=== PATIENT | male | born 1980 | race American Indian/Alaskan Native ===

== ENCOUNTER 2016-08-10 18:13 | Emergency (ER) | payer SELFPAY ==
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
[2016-08-10 22:14] VITALS: BP 121/74
[2016-08-10] MEDS ORDERED: TORADOL IM ONE (22:15)
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
== END 2016-08-10 22:31 | disposition home or self-care (01) ==
LOC: ED 18:13
DX: S39.012A Strain of muscle, fascia and tendon of lower back, initial encounter (principal); M25.571 Pain in right ankle and joints of right foot; F17.200 Nicotine dependence, unspecified, uncomplicated; V49.59XA Passenger injured in collision with other motor vehicles in traffic accident, initial encounter; Y93.9 Activity, unspecified; Y92.9 Unspecified place or not applicable; Y99.9 Unspecified external cause status
CPT/HCPCS: 29515; 72100; 73630; 96372; 99283; J1885

== ENCOUNTER 2018-02-05 17:13 | Emergency (ER) | payer SELFPAY ==
[2018-02-05 19:39] VITALS: BP 129/79
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
[2018-02-05] MEDS ORDERED: MOTRIN PO ONE (21:23)
[2018-02-05] MEDS ORDERED: PERCOCET 5/325 PO ONE (21:23)
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
== END 2018-02-05 23:03 | disposition home or self-care (01) ==
LOC: ED 17:13
DX: S82.001A Unspecified fracture of right patella, initial encounter for closed fracture (principal); S80.212A Abrasion, left knee, initial encounter; F17.200 Nicotine dependence, unspecified, uncomplicated; V03.10XA Pedestrian on foot injured in collision with car, pick-up truck or van in traffic accident, initial encounter; Y93.89 Activity, other specified; Y92.410 Unspecified street and highway as the place of occurrence of the external cause; Y99.8 Other external cause status
CPT/HCPCS: 99284

== ENCOUNTER 2018-10-15 17:21 | Emergency (ER) | payer SELFPAY ==
[2018-10-15 17:40] VITALS: BP 111/62
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
[2018-10-15] MEDS ORDERED: NORCO 5/325 PO ONE (18:41)
--- NOTE | 2018-10-15 21:14 | XRay Report ---
PROCEDURE: XR KNEE 3V RT TECHNIQUE: 3 views of the right knee HISTORY: right knee pain COMPARISONS: 02/05/2018 FINDINGS: Previous study showed a horizontally oriented patellar fracture through the lower pole. At that time the bones were by 2.6 cm. Presently, the patella is high riding, and located anterior to th e distal femoral diaphysis and from the lower pole fracture fragment by 10.1 cm. Otherwise, the knee joint is normally aligned. The soft tissues are unremarkable. IMPRESSION: Increased separation of fracture fragments of a patellar fracture as described above. This document is electronically signed by Araceli Camacho MD., October 15 2018 09:12:21 PM ET
== END 2018-10-15 20:21 | disposition left against medical advice (07) ==
LOC: ED 17:21
DX: M25.561 Pain in right knee (principal); Z53.21 Procedure and treatment not carried out due to patient leaving prior to being seen by health care provider

== ENCOUNTER 2018-10-16 00:17 | Emergency (ER) | payer SELFPAY ==
[2018-10-16 00:38] VITALS: BP 108/78
[2018-10-16] MEDS ORDERED: TYLENOL PO ONE (02:02)
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
== END 2018-10-16 02:25 | disposition home or self-care (01) ==
LOC: ED 00:17
DX: S82.001A Unspecified fracture of right patella, initial encounter for closed fracture (principal); F17.200 Nicotine dependence, unspecified, uncomplicated; X58.XXXA Exposure to other specified factors, initial encounter; Y93.89 Activity, other specified; Y92.89 Other specified places as the place of occurrence of the external cause; Y99.8 Other external cause status

== ENCOUNTER 2019-04-26 03:31 | Emergency (ER) | payer SELFPAY ==
--- NOTE | 2019-04-26 04:09 | XRay Report ---
] Knee, 2 views INDICATION: Pain following fall FINDINGS: The joint spaces are intact. Joint effusion may be present with minimal patellar spurring. There is chondrocalcinosis of the menisci. No fracture is seen. Signer Name: Toño Frye MD Signed: 04/26/2019 4:04 AM Workstation Name: [id number]
[2019-04-26] MEDS ORDERED: ONDANSETRON 4 MG ODT TAB PO ONE (04:45)
[2019-04-26] MEDS ORDERED: IBUPROFEN 600 MG TAB PO ONE (04:45)
[2019-04-26] MEDS ORDERED: oxyCODONE /ACETAMINOPHEN 5-325MG TAB PO ONE (04:45)
--- NOTE | 2019-04-26 05:04 | Emergency Department Report ---
ED Lower Extremity HPI - General Chief Complaint: Extremity Injury, Lower Stated Complaint: RT KNEE PAIN Source: patient Mode of arrival: Ambulatory Limitations: No Limitations - History of Present Illness Initial Comments: Patient is a 38-year-old -[place] male with a history of chronic right knee pain from an old injury who presents to the ED with component of acute o nset severe right knee pain after his most pleasant landing on the right knee which he states got hyperflexed about 3 hours ago. Patient states that the pain is worse with any active range of motion or ambulation. Patient denies syncope, numbness or tingling over the right leg, dizziness, headache, chest pain, shortness of breath or low back. MD Complaint: knee injury (right) -: Sudden, hour(s) (3) Injury: Knee: Right (pain) Type of Injury: hyperflexion, other (lost balance and fell) Place: home Severity: severe Severity scale (0 -10): 8 Improves With: nothing Worsens With: weight bearing, movement, palpation Context: fall Associated Symptoms: able to partially bear weight. denies: snap/pop sensation, swelling, numbness, tingling, unable to bear weight, ambulatory - Related Data Previous Rx's Medication Instructions Recorded Last Taken Type Acetaminophen/Codeine [Tylenol #3] 1 tab PO Q6H PRN #15 tab 08/10/16 Unknown Rx Cyclobenzaprine [Flexeril] 10 mg PO TID PRN #15 tablet 08/10/16 Unknown Rx HYDROcodone/ACETAMINOPHEN [[place] 1 each PO Q6H PRN #20 tablet 03/27/18 Unknown Rx 5-325 Tablet] Ibuprofen [Motrin 800 MG tab] 800 mg PO Q8HR PRN #30 tablet 03/27/18 Unknown Rx HYDROcodone/APAP 5-325 [[place] 1 each PO Q6HR PRN #15 tablet 10/16/18 Unknown Rx 5/325] Ibuprofen [Motrin] 800 mg PO Q8HR PRN #24 tablet 04/26/19 Unknown Rx tiZANidine [Zanaflex 4mg TAB] 4 mg PO Q8H PRN #21 tablet 04/26/19 Unknown Rx traMADoL [Ultram] 50 mg PO Q6HR PRN #12 tablet 04/26/19 Unknown Rx Allergies Allergy/AdvReac Type Severity Reaction Status Date / Time No Known Allergies Allergy Verified 06/04/19 17:23 ED Review of Systems ROS: Stated complaint: RT KNEE PAIN Other details as noted in HPI Constitutional: denies: chills, fever Eyes: denies: eye pain, eye discharge, vision change ENT: denies: ear pain, throat pain Respiratory: denies: cough, shortness of breath, wheezing Cardiovascular: denies: chest pain, palpitations Endocrine: no symptoms reported Gastrointestinal: denies: abdominal pain, nausea, diarrhea Genitourinary: denies: urgency, dysuria Musculoskeletal: arthralgia (right knee pain). denies: back pain, joint swelling Skin: denies: rash, lesions Neurological: denies: headache, weakness, paresthesias Psychiatric: denies: anxiety, depression Hematological/Lymphatic: denies: easy bleeding, easy bruising ED Past Medical Hx - Past Medical History Previous Medical History?: No - Surgical History Past Surgical History?: No Additional Surgical History: HERNIA REPAIR-CHILD - Social History Smoking Status: Current Some Day Smoker Substance Use Type: None - Medications Home Medications: Home Medications Medication Instructions Recorded Confirmed Last Taken Type Acetaminophen/Codeine [Tylenol #3] 1 tab PO Q6H PRN #15 tab 08/10/16 Unknown Rx Cyclobenzaprine [Flexeril] 10 mg PO TID PRN #15 tablet 08/10/16 Unknown Rx HYDROcodone/ACETAMINOPHEN [[place] 1 each PO Q6H PRN #20 tablet 03/27/18 Unknown Rx 5-325 Tablet] Ibuprofen [Motrin 800 MG tab] 800 mg PO Q8HR PRN #30 tablet 03/27/18 Unknown Rx HYDROcodone/APAP 5-325 [[place] 1 each PO Q6HR PRN #15 tablet 10/16/18 Unknown Rx 5/325] Ibuprofen [Motrin] 800 mg PO Q8HR PRN #24 tablet 04/26/19 Unknown Rx tiZANidine [Zanaflex 4mg TAB] 4 mg PO Q8H PRN #21 tablet 04/26/19 Unknown Rx traMADoL [Ultram] 50 mg PO Q6HR PRN #12 tablet 04/26/19 Unknown Rx ED Physical Exam - General Limitations: No Limitations General appearance: alert, in no apparent distress - Head Head exam: Present: atraumatic, normocephalic, normal inspection - Eye Eye exam: Present: normal appearance, PERRL, EOMI Pupils: Present: normal accommodation - ENT ENT exam: Present: normal exam, normal orophraynx, mucous membranes moist, TM's normal bilaterally, normal external ear exam - Neck Neck exam: Present: normal inspection, full ROM - Respiratory Respiratory exam: Present: normal lung sounds bilaterally. Absent: respiratory distress, wheezes, chest wall tenderness, accessory muscle use, prolonged expiratory - Cardiovascular Cardiovascular Exam: Present: regular rate, normal rhythm, normal heart sounds. Absent: systolic murmur, diastolic murmur, rubs, gallop - GI/Abdominal GI/Abdominal exam: Present: soft, normal bowel sounds. Absent: tenderness, guarding, rebound, hyperactive bowel sounds, hypoactive bowel sounds - Extremities Exam Extremities exam: Present: normal inspection, full ROM, tenderness (mildly tender right knee joint), normal capillary refill - Back Exam Back exam: Present: normal inspection, full ROM. Absent: CVA tenderness (L), muscle spasm - Neurological Exam Neurological exam: Present: alert, oriented X3, CN II-XII intact, normal gait, reflexes normal - Psychiatric Psychiatric exam: Present: normal affect, normal mood - Skin Skin exam: Present: warm, dry, intact, normal color. Absent: rash ED Course Vital Signs 04/26/19 04/26/19 04/26/19 04:53 04:54 05:18 Temperature 98.7 F Pulse Rate 88 Respiratory 18 18 18 Rate Blood Pressure 136/87 [Left] ED Lower Extremity MDM - Radiology Data Radiology results: report reviewed, image reviewed Findings [facility] [address] [place] [address] XRay Report Signed Patient: AYDEE JOHNSTON MR#: [id number] : 1980 Acct:[id number] Age/Sex: 38 / M ADM Date: 04/26/19 Loc: ED Attending Dr: Ordering Physician: DAVID KAUR MD Date of Service: 04/26/19 Procedure(s): XR knee 1-2V RT Accession Number(s): [id number] cc: DAVID KAUR MD Fluoro Time In Minutes: ] Knee, 2 views INDICATION: Pain following fall FINDINGS: The joint spaces are intact. Joint effusion may be present with minimal patellar spurring. There is chondrocalcinosis of the menisci. No fracture is seen. Signer Name: Toño Frye MD Signed: 04/26/2019 4:04 AM Workstation Name: [id number] Transcribed By: JM Dictated By: Toño Frye MD Electronically Authenticated By: Toño Frye MD Signed Date/Time: 04/26/19403 DD/ 2 TD/TT: - Medical Decision Making This is a 38-year-old male who presented to the ED with right knee pain after he lost balance and fell down landing on the right knee. In the ED, patient is alert and oriented 3 and is noticing any distress. Right knee x-ray shows The joint spaces that are intact. Joint effusion may be present with minimal patellar spurring. There is chondrocalcinosis of the menisci. No fracture is seen. Patient was treated for pain in the ED and right knee splint and Nikko wrap and patient discharged home on pain medications and muscle relaxants and was advised to follow-up with his primary care physician in 7-10 days for reevaluation or consider following up with the orthopedic surgeon Dr. Nayak for further evaluation. Patient was advised to return to the ED immediately if symptoms get worse. - Differential Diagnosis Knee sprain; knee fracture; muscle strain; DJD of right knee Critical care attestation.: If time is entered above; I have spent that time in minutes in the direct care of this critically ill patient, excluding procedure time. ED Disposition Clinical Impression: Contusion of right knee, initial encounter Right knee sprain Qualifiers: Encounter type: initial encounter Involved ligament of knee: unspecified ligament Qualified Code(s): S83.91XA - Sprain of unspecified site of right knee, initial encounter Muscle strain of right knee Qualifiers: Encounter type: initial encounter Qualified Code(s): S86.911A - Strain of unspecified muscle(s) and tendon(s) at lower leg level, right leg, initial encounter Disposition: DC-01 TO HOME OR SELFCARE Is pt being admited?: No Does the pt Need Aspirin: No Condition: Stable Instructions: Knee Sprain (ED), Muscle Strain (ED), Contusion in Adults (ED) Additional Instructions: Take medication with food, drink plenty of fluids and follow-up with your primary care physician in 5-7 days for reevaluation or consider following up with the orthopedic surgeon ribbon weaver Dr. Nayak for further evaluation. Return to the ED immediately if symptoms get worse. Prescriptions: Ibuprofen [Motrin] 800 mg PO Q8HR PRN #24 tablet PRN Reason: Pain , Severe (7-10) traMADoL [Ultram] 50 mg PO Q6HR PRN #12 tablet PRN Reason: Pain tiZANidine [Zanaflex 4mg TAB] 4 mg PO Q8H PRN #21 tablet PRN Reason: Muscle Spasm Referrals: DEIDRE NAYAK MD [Staff Physician] - 3-5 Days Time of Disposition: 05:02 Print Language: MOHAWK
[2019-04-26 05:19] VITALS: BP 136/87
== END 2019-04-26 05:19 | disposition home or self-care (01) ==
LOC: ED 03:31
DX: S86.911A Strain of unspecified muscle(s) and tendon(s) at lower leg level, right leg, initial encounter (principal); S83.91XA Sprain of unspecified site of right knee, initial encounter; F17.200 Nicotine dependence, unspecified, uncomplicated; X50.9XXA Other and unspecified overexertion or strenuous movements or postures, initial encounter; Y93.89 Activity, other specified; Y92.89 Other specified places as the place of occurrence of the external cause; Y99.8 Other external cause status
CPT/HCPCS: Q0162

== ENCOUNTER 2019-07-24 19:25 | Emergency (ER) | payer SELFPAY | END 2019-07-24 20:00 | disposition left against medical advice (07) | LOC: ED 19:25 | DX: M79.89 Other specified soft tissue disorders (principal); Z53.21 Procedure and treatment not carried out due to patient leaving prior to being seen by health care provider ==

== ENCOUNTER 2019-09-18 21:23 | Emergency (ER) | payer SELFPAY ==
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
--- NOTE | 2019-09-18 22:49 | XRay Report ---
RIGHT KNEE 3 VIEWS INDICATION of the patella. No acute injury./ CLINICAL INFORMATION: INJURY COMPARISON: None available. FINDINGS: BONES / JOINT(S): Chronic avulsion of the inferior aspect of the patella with proximal retraction of the patellar tendon and superior displacement No significant arthritis. SOFT TISSUES: Soft tissue swelling anteriorly. ADDITIONAL FINDINGS: None. Signer Name: Allen Ruiz MD Signed: 09/18/2019 10:45 PM Workstation Name: [id number]
[2019-09-18] MEDS ORDERED: KETOROLAC 30 MG/1 ML INJ ONE (22:57)
[2019-09-18] MEDS ORDERED: KETOROLAC 30 MG/1 ML INJ IM ONE (23:01)
[2019-09-18 23:06] VITALS: BP 120/80
== END 2019-09-18 23:04 | disposition home or self-care (01) ==
LOC: ED 21:23
DX: M25.561 Pain in right knee (principal); M25.461 Effusion, right knee; Z79.899 Other long term (current) drug therapy; Z98.890 Other specified postprocedural states
CPT/HCPCS: 73562; 96372; 99283; J1885

== ENCOUNTER 2020-03-03 00:37 | Emergency (ER) | payer SELFPAY | END 2020-03-03 02:00 | disposition left against medical advice (07) | LOC: ED 00:37 | DX: M25.571 Pain in right ankle and joints of right foot (principal); Z53.21 Procedure and treatment not carried out due to patient leaving prior to being seen by health care provider ==

== ENCOUNTER 2020-03-03 16:39 | Emergency (ER) | payer SELFPAY | END 2020-03-03 17:30 | disposition left against medical advice (07) | LOC: ED 16:39 | DX: K04.7 Periapical abscess without sinus (principal); Z53.21 Procedure and treatment not carried out due to patient leaving prior to being seen by health care provider ==

== ENCOUNTER 2020-03-22 08:55 | Emergency (ER) | payer SELFPAY ==
[2020-03-22 09:21] VITALS: BP 115/57
== END 2020-03-22 10:20 | disposition left against medical advice (07) ==
LOC: ED 08:55
DX: M25.561 Pain in right knee (principal); Z53.21 Procedure and treatment not carried out due to patient leaving prior to being seen by health care provider

== ENCOUNTER 2020-04-04 11:25 | Emergency (ER) | payer SELFPAY ==
[2020-04-04 11:49] VITALS: BP 104/78
== END 2020-04-04 12:21 | disposition left against medical advice (07) ==
LOC: ED 11:25
DX: M25.561 Pain in right knee (principal); Z53.21 Procedure and treatment not carried out due to patient leaving prior to being seen by health care provider